=== PATIENT | male | born 1930 | race Caucasian/White ===

== ENCOUNTER → 2018-09-06 | Outpatient (CLI) | payer MEDICARE, BC ==
[2018-09-06 10:05] LABS: HCT 42.7 % (39.0-53.0); HGB 14.5 gm/dL (13.0-17.5); MCH 30.9 pg (25.0-35.0); MCHC 33.9 g/dL (31.0-37.0); Mean Platelet Volume 7.5; Platelet Count 146 k/uL (150-450); RDW 13.1 % (11.5-15.5); WBC 8.3 k/uL (3.8-10.6)
[2018-09-06 17:45] LABS: Albumin 4.5 g/dL (3.80-4.90); Albumin/Globulin Ratio 2.65 (1.60-3.17); Anion Gap 12.2 mmol/L (4.00-12.00); Calcium 9.5 mg/dL (8.7-10.3); Carbon Dioxide 28.8 mmol/L (21.6-31.8); Globulin 1.7 g/dL (1.6-3.3); LDL Cholesterol,Calculated 67.8 mg/dL (0.0-131.0); Potassium 3.7 mmol/L (3.5-5.5); Total Bilirubin 1.1 mg/dL (0.3-1.2); Total Protein 6.2 g/dL (6.2-8.2); VLDL Calculation 23.2 mg/dL (5.00-40.00)
[2018-09-06 18:21] LABS: Hemoglobin A1C 9.1 % (4.0-6.0)
== END | disposition home or self-care (01) ==
LOC: LABWHC1 09:15
PROVIDERS: ATTEND Internal Medicine
DX: E78.5 Hyperlipidemia, unspecified (principal); I10 Essential (primary) hypertension; E11.9 Type 2 diabetes mellitus without complications
CPT/HCPCS: 36415; 80053; 80061; 83036; 84443; 85027

== ENCOUNTER → 2020-03-08 | Outpatient (CLI) | payer MEDICARE, BC ==
--- NOTE | 2020-03-08 16:28 | XR ---
EXAMINATION TYPE: XR Hip Complete RT DATE OF EXAM: 03/08/2020 CLINICAL HISTORY: Lower back pain and right hip pain following a fall 3 days ago. TECHNIQUE: AP and frogleg views of the right hip are obtained. COMPARISON: None. FINDINGS: There is no acute fracture or dislocation of the right hip. There is right hip degenerativ e spurring, subchondral cyst formation, and sclerosis of the superior acetabulum. The overlying soft tissue appears unremarkable. IMPRESSION: No acute fracture or dislocation of the right hip.
--- NOTE | 2020-03-08 16:34 | XR ---
EXAMINATION TYPE: XR lumbosacral spine min 4V DATE OF EXAM: 03/08/2020 CLINICAL HISTORY: Right hip and lower back pain following a fall 3 days ago. TECHNIQUE: Frontal, lateral, and oblique images of the lumbar spine are obtained. COMPARISON: None FINDINGS: There are 5 lumbar type vertebral bodies identified. No acute fracture or dislocation. Dogn tebral body heights are normal. There is multilevel degenerative disc disease with osteophytic spurri ng. Diffuse facet arthropathy. No evidence of spondylolisthesis. There is calcified atherosclerotic d isease of the abdominal aorta. There is a rounded calcification within the right upper quadrant measu ring up to 2.3 cm. Additional vascular calcifications are seen. IMPRESSION: 1. No acute fracture or dislocation is seen in the lumbar spine. 2. Diffuse degenerative disc disease and facet arthropathy. 3. Right upper quadrant 2.3 cm rounded calcification of uncertain etiology. Differential includes cho lelithiasis, as well as vascular calcification including renal artery aneurysm. CT examination of the abdomen can be obtained for further characterization.
== END | disposition home or self-care (01) ==
LOC: RADXRMAIN 08:43
PROVIDERS: ATTEND Internal Medicine
DX: M51.37 Other intervertebral disc degeneration, lumbosacral region (principal); M47.817 Spondylosis without myelopathy or radiculopathy, lumbosacral region; M25.551 Pain in right hip
CPT/HCPCS: 72110; 73502

== ENCOUNTER → 2020-07-19 | Outpatient (CLI) | payer MEDICARE, BC ==
--- NOTE | 2020-07-19 19:24 | US ---
EXAMINATION TYPE: US venous doppler duplex LE LT DATE OF EXAM: 07/19/2020 5:26 PM COMPARISON: NONE CLINICAL HISTORY: M79.662 Pain in left lower leg. Pain and swelling x 1 week. No hx of DVT. Patient d oes not take blood thinners. SIDE PERFORMED: Left TECHNIQUE: The lower extremity deep venous system is examined utilizing real time linear array sonog ashley with graded compression, doppler sonography and color-flow sonography. VESSELS IMAGED: Common Femoral Vein Deep Femoral Vein Greater Saphenous Vein * Femoral Vein Popliteal Vein Small Saphenous Vein * Proximal Calf Veins (* superficial vessels) Left Leg: No evidence of DVT in veins imaged at this time from prox calf veins to CFV/GSV. There eladia ears to be a hypoechoic-anechoic area seen left medial popliteal area measuring 3.2 x 4.3 x 0.8 cm. 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 No evide nce of DVT.
== END | disposition home or self-care (01) ==
LOC: RADUSWWP 16:35
PROVIDERS: ATTEND Internal Medicine
DX: R93.6 Abnormal findings on diagnostic imaging of limbs (principal)